=== PATIENT | female | born 1950 | race Caucasian/White ===

== ENCOUNTER 2020-12-20 08:13 | Outpatient (CLI) | payer MEDICARE, BC | END 2020-12-20 08:14 | disposition home or self-care (01) | LOC: CSHNM 08:13 | PROVIDERS: ATTEND Internal Medicine Gastroenterology | DX: R10.13 Epigastric pain (principal) | CPT/HCPCS: 78227; A9537 ==

== ENCOUNTER 2021-08-15 10:08 | Outpatient (CLI) | payer MEDICARE, BC | END 2021-08-15 10:09 | disposition home or self-care (01) | LOC: CSHMAMMO 10:08 | PROVIDERS: ATTEND Student in an Organized Health Care Education/Training Program | DX: Z12.31 Encounter for screening mammogram for malignant neoplasm of breast (principal) | CPT/HCPCS: 77063; 77067 ==

== ENCOUNTER 2021-11-17 14:31 | Outpatient (CLI) | payer MEDICARE, BC | END 2021-11-17 14:32 | disposition home or self-care (01) | LOC: CSHMAMMO 14:31 | PROVIDERS: ATTEND Student in an Organized Health Care Education/Training Program | DX: Z13.820 Encounter for screening for osteoporosis (principal); Z78.0 Asymptomatic menopausal state; E28.39 Other primary ovarian failure; M85.89 Other specified disorders of bone density and structure, multiple sites | CPT/HCPCS: 77080 ==

== ENCOUNTER 2022-05-01 09:12 | Outpatient (CLI) | payer MEDICARE, BC ==
[2022-05-01] MEDS ORDERED: Iopamidol 370 76% 100 ML VIAL ONE (10:18)
== END 2022-05-01 09:13 | disposition home or self-care (01) ==
LOC: CSHCT 09:12
PROVIDERS: ATTEND Student in an Organized Health Care Education/Training Program
DX: R47.81 Slurred speech (principal)
CPT/HCPCS: 70470; 82565; Q9967

== ENCOUNTER 2023-12-09 09:49 | Outpatient (CLI) | payer BC, MEDICARE | END 2023-12-09 09:50 | disposition home or self-care (01) | LOC: CSHMAMMO 09:49 | PROVIDERS: ATTEND Nurse Practitioner Family | DX: Z13.820 Encounter for screening for osteoporosis (principal); M81.0 Age-related osteoporosis without current pathological fracture; M85.852 Other specified disorders of bone density and structure, left thigh; Z78.0 Asymptomatic menopausal state | CPT/HCPCS: 77080 ==

== ENCOUNTER 2024-06-20 10:30 | Outpatient (CLI) | payer MEDICARE | END 2024-06-20 10:31 | disposition home or self-care (01) | LOC: CSHMAMMO 10:30 | PROVIDERS: ATTEND Nurse Practitioner Family | DX: Z12.31 Encounter for screening mammogram for malignant neoplasm of breast (principal) | CPT/HCPCS: 77067 ==

== ENCOUNTER 2025-07-04 09:37 | Outpatient (CLI) | payer MEDICARE | END 2025-07-04 09:38 | disposition home or self-care (01) | LOC: CSHMAMMO 09:37 | PROVIDERS: ATTEND Family Medicine | DX: Z12.31 Encounter for screening mammogram for malignant neoplasm of breast (principal) | CPT/HCPCS: 77063; 77067 ==